=== PATIENT | female | born 1955 | race Caucasian/White ===

== ENCOUNTER → 2018-11-18 | Outpatient (CLI) | payer MEDICARE, OTHER ==
[~2018-11-18] MED LIST: CATHETER FLUSH 10 ML SYR IV PRN
--- NOTE | 2018-11-18 19:31 | STRESS TEST ---
DATE OF SERVICE: 11/18/2018 LEXISCAN MYOVIEW STRESS TEST REPORT REFERRING PHYSICIAN: . Baseline heart rate is 60. Baseline blood pressure 137/67. Baseline EKG is sinus rhythm with no ischemic changes. In summary, the patient was injected with 10.20 mCi of technetium-99 Myoview and the resting images were obtained. Then, the patient received 0.4 mg of Lexiscan followed by 31.9 mCi of technetium-99 Myoview. Throughout the test, there were no EKG changes. The resting and stress images were reviewed and compared in the short axis, horizontal long axis, and vertical long axis views. Review of the images showed good radiotracer uptake with no significant ischemia or infarction. SSS is 3, SDS 3, TID value 0.86. On the gated images, the left ventricle appeared to be normal size with normal contractility. Calculated ejection fraction 70%. CONCLUSION: 1. The patient tolerated Lexiscan well. 2. No significant ischemia or infarction on SPECT images. 3. Normal left ventricular size with normal contractility. Calculated ejection fraction 70%. Job ID: [id number] DocumentID: [id number] Dictated Date: 11/18/2018 16:08:17 [employer] Supervisor Date: 11/18/2018 19:31:17 Dictated By: PRATIK WALLER MD
== END ==
LOC: CARD 11:52
PROVIDERS: ATTEND Internal Medicine Cardiovascular Disease
DX: I10 Essential (primary) hypertension (principal); I07.1 Rheumatic tricuspid insufficiency
CPT/HCPCS: 78452; 93017; 93306

== ENCOUNTER → 2019-03-23 | Outpatient (CLI) | payer MEDICARE, OTHER ==
--- NOTE | 2019-03-23 15:41 | Diagnostic Imaging Report ---
INDICATION: Postmenopausal state, screening for osteoporosis. COMPARISON: None available, baseline exam. FINDINGS: AP Spine L1-L4: [BMD (g/cm2): 0.982] [T-Score: -1.8] [Z-Score: -0.3] [BMD Previous: na] [BMD % Change: na] LT Hip Neck: [BMD (g/cm2): 0.757] [T-Score: -2.0] [Z-Score: -0.6] LT Hip Total: [BMD (g/cm2):0.847] [T-Score:-1.3] [Z-Score: -0.1] [BMD Previous: na] [BMD % Change: na] RT Hip Neck: [BMD (g/cm2):0.803] [T-Score:-1.7] [Z-Score:-0.2] RT Hip Total: [BMD (g/cm2):0.824] [T-score:-1.5] [Z-Score:-0.3] [BMD Previous:na] [BMD % Change:na] *Indicates significant change from prior examination based on 95% confidence level. World Health Organization criteria for BMD interpretation classify patients as Normal (T-score at or above -1.0), Osteopenic (T-score between -1.0 and -2.5) or Osteoporotic (T-score at or below -2.5). LIMITATIONS AND MODIFICATION: None. FRACTURE RISK (FRAX SCORE): The ten year probability of (%): Major Osteoporotic Fracture: [18.2] Hip Fracture: [3.0] IMPRESSION: 1. Osteopenia (Low bone mass). 2. Baseline examination. 3. See below National Osteoporosis Foundation guidelines on when to potentially initiate pharmacologic therapy. Based on the National Osteoporosis Foundation Guidelines, pharmacologic treatment should be initiated in any of the following, unless clinical conditions suggest otherwise: * Any patient with prior fragility fracture of the hip or vertebrae. A spine fracture indicates 5X risk for subsequent spine fracture and 2X risk for subsequent hip fracture. * Osteoporosis (T-score <-2.5). * Postmenopausal women and men age 50 and older with low bone mass/osteopenia (T-score between -1.0 and -2.5) by DXA and 10-year major osteoporotic fracture greater than 20% or a 10-year probability of hip fracture greater than 3%. These fracture risks are supplied above in the FRAX score, if applicable. * Clinician judgement and/or patient preferences may indicate treatment for people with 10-year fracture probabilities above or below these levels. Dictated by: Dictated on workstation # [id number]
== END ==
LOC: RAD 14:09
PROVIDERS: ATTEND Family Medicine
DX: Z13.820 Encounter for screening for osteoporosis (principal); Z78.0 Asymptomatic menopausal state; M85.89 Other specified disorders of bone density and structure, multiple sites
CPT/HCPCS: 77080

== ENCOUNTER → 2019-05-11 | Outpatient (CLI) | payer MEDICARE, OTHER ==
--- NOTE | 2019-05-11 17:08 | Diagnostic Imaging Report ---
INDICATION: Leg pain. Three views were obtained. FINDINGS: The alignment of the lumbar spine is normal. Vertebral body heights are well maintained. There is no spondylolysis or spondylolisthesis. No fractures are identified. There is focal degenerative disc disease at L4-L5 and L5-S1. IMPRESSION: Lower lumbar spondylosis and degenerative disc disease as described. Dictated by: Dictated on workstation # [id number]
== END ==
LOC: RAD FS 16:33
PROVIDERS: ATTEND Family Medicine
DX: M47.816 Spondylosis without myelopathy or radiculopathy, lumbar region (principal); M51.17 Intervertebral disc disorders with radiculopathy, lumbosacral region
CPT/HCPCS: 72100

== ENCOUNTER 2020-04-11 11:27 | Emergency (ER) | payer MEDICARE ==
[~2020-04-11] VITALS: Ht 162.6 cm; Wt 66.8 kg
--- NOTE | 2020-04-11 12:04 | ED GI ---
General Chief Complaint: Abdominal/GI Problems Stated Complaint: NEAR SYNCOPE; NAUSEA Source of Information: Patient History of Present Illness Date Seen by Provider: Apr 11, 2020 Time Seen by Provider: 12:00 Initial Comments 65-year-old female presents with 3 week history of dizziness, abdominal discomfort, lightheadedness when standing. Patient with history of diverticulitis which was recently treated by her PCP with Levaquin, also recent UTI treated in urgent care with nitrofurantoin. Patient concerned that she think she has diverticulitis. Denies any blood in her stool or diarrhea or constipation. Denies any weight loss. Denies any recent illness, fever or chills. Denies nausea or vomiting. Allergies and Home Medications Allergies Coded Allergies: No Known Drug Allergies (Unverified , 04/11/20) Home Medications Ondansetron 4 Mg Tab.rapdis, 4 MG PO TID Prescribed by: JEAN SWAN on 04/11/20 1343 Patient Home Medication List Home Medication List Reviewed: Yes Review of Systems Review of Systems Constitutional: No chills, No diaphoresis; dizziness; No fever; malaise, weakness EENTM: No Symptoms Reported Respiratory: Denies Cough, Denies Shortness of Air, Denies Stridor, Denies Wheezing Cardiovascular: Denies Chest Pain, Denies Edema; Lightheadedness; Denies Palpitations, Denies Syncope Gastrointestinal: See HPI, Abdominal Pain; Denies Constipated, Denies Diarrhea, Denies Difficulty Swallowing, Denies Nausea, Denies Poor Appetite, Denies Vomiting Genitourinary: Denies Burning, Denies Discharge, Denies Frequency, Denies Flank Pain Musculoskeletal: No back pain, No joint pain Skin: No change in color, No rash Psychiatric/Neurological: Denies Headache, Denies Numbness, Denies Paresthesia, Denies Seizure, Denies Tingling; Weakness Past Zwtjtdr-Wdgaia-Ddejae Hx Past Med/Social Hx: Reviewed Nursing Past Med/Soc Hx Physical Exam Vital Signs Vital Signs - First Documented 04/11/20 11:58 Temp 36.9 Pulse 63 Resp 18 B/P (MAP) 145/92 (109) Pulse Ox 96 O2 Delivery Room Air Capillary Refill : Height/Weight/BMI Height: '" Weight: lbs. oz. kg; BMI Method: General Appearance: WD/WN, no apparent distress HEENT: PERRL/EOMI, normal ENT inspection Neck: non-tender, supple Respiratory: chest non-tender, lungs clear, normal breath sounds, no respiratory distress, no accessory muscle use Cardiovascular: regular rate, rhythm, no edema, no gallop, no JVD, no murmur Gastrointestinal: normal bowel sounds, soft, no organomegaly, no pulsatile mass, tenderness (non-localized, mild and generalized tenderness. no peritoneal sx) Extremities: normal range of motion, non-tender, normal inspection, no pedal edema, no calf tenderness Back: normal inspection, no CVA tenderness, no vertebral tenderness Neurologic/Psychiatric: alert, normal mood/affect Skin: normal color, warm/dry Progress/Results/Core Measures Results/Orders Lab Results Laboratory Tests Test 04/11/20 12:23 04/11/20 12:40 Range/Units Urine Color YELLOW Urine Clarity CLEAR Urine pH 5.5 5-9 Urine Specific [place] >=1.030 1.016-1.022 Urine Protein NEGATIVE NEGATIVE Urine Glucose (UA) NEGATIVE NEGATIVE Urine Ketones NEGATIVE NEGATIVE Urine Nitrite NEGATIVE NEGATIVE Urine Bilirubin NEGATIVE NEGATIVE Urine Urobilinogen 0.2 < = 1.0 MG/DL Urine Leukocyte Esterase NEGATIVE NEGATIVE Urine RBC (Auto) NEGATIVE NEGATIVE Urine RBC NONE /HPF Urine WBC 0-2 /HPF Urine Squamous Epithelial Cells 0-2 /HPF Urine Crystals NONE /LPF Urine Bacteria NEGATIVE /HPF Urine Casts NONE /LPF Urine Mucus SMALL H /LPF Urine Culture Indicated NO White Blood Count 10.1 4.3-11.0 10^3/uL Red Blood Count 4.74 4.35-5.85 10^6/uL Hemoglobin 13.7 11.5-16.0 G/DL Hematocrit 42 35-52 % Mean Corpuscular Volume 89 80-99 FL Mean Corpuscular Hemoglobin 29 25-34 PG Mean Corpuscular Hemoglobin Concent 33 32-36 G/DL Red Cell Distribution Width 12.5 10.0-14.5 % Platelet Count 254 130-400 10^3/uL Mean Platelet Volume 10.7 H 7.4-10.4 FL Immature Granulocyte % (Auto) 0 % Neutrophils (%) (Auto) 68 42-75 % Lymphocytes (%) (Auto) 23 12-44 % Monocytes (%) (Auto) 7 0-12 % Eosinophils (%) (Auto) 1 0-10 % Basophils (%) (Auto) 0 0-10 % Neutrophils # (Auto) 6.8 1.8-7.8 X 10^3 Lymphocytes # (Auto) 2.4 1.0-4.0 X 10^3 Monocytes # (Auto) 0.7 0.0-1.0 X 10^3 Eosinophils # (Auto) 0.1 0.0-0.3 10^3/uL Basophils # (Auto) 0.0 0.0-0.1 10^3/uL Immature Granulocyte # (Auto) 0.0 0.0-0.1 10^3/uL Sodium Level 139 135-145 MMOL/L Potassium Level 4.1 3.6-5.0 MMOL/L Chloride Level 101 98-107 MMOL/L Carbon Dioxide Level 27 21-32 MMOL/L Anion Gap 11 5-14 MMOL/L Blood Urea Nitrogen 18 7-18 MG/DL Creatinine 0.92 0.60-1.30 MG/DL Estimat Glomerular Filtration Rate > 60 BUN/Creatinine Ratio 20 Glucose Level 96 70-105 MG/DL Calcium Level 9.2 8.5-10.1 MG/DL Corrected Calcium 8.9 8.5-10.1 MG/DL Total Bilirubin 0.3 0.1-1.0 MG/DL Aspartate Amino Transf (AST/SGOT) 23 5-34 U/L Alanine Aminotransferase (ALT/SGPT) 20 0-55 U/L Alkaline Phosphatase 85 40-136 U/L Total Protein 7.1 6.4-8.2 GM/DL Albumin 4.4 3.2-4.5 GM/DL Lipase 36 8-78 U/L My Orders Orders - JEAN SWAN DO Ed Iv/Invasive Line Start (04/11/20 12:04) Cbc With Automated Diff (04/11/20 12:04) Comprehensive Metabolic Panel (04/11/20 12:04) Lipase (04/11/20 12:04) Urinalysis (04/11/20 12:04) Acute Abd Series (04/11/20 12:04) Vital Signs/I&O 04/11/20 04/11/20 11:58 13:54 Temp 36.9 36.9 Pulse 63 60 Resp 18 18 B/P (MAP) 145/92 (109) 140/90 (109) Pulse Ox 96 95 O2 Delivery Room Air Progress Progress Note : Progress Note Discussed with patient her evaluation including normal labs, and x-rays showing moderate amount of stool in the colon. Discussed her diet, encouraged improved hydration and advised [id number] laxatives to try to clear her bowels over the next few days. Also encouraged patient to follow up with her primary care provider in the next week for further evaluation if deemed necessary, but at this time she seemed to be doing rather well. Diagnostic Imaging Diagonstic Imaging: Xray Plain Films/CT/US/NM/MRI: chest, abdomen Comments FINDINGS: The lungs are clear. There is a benign calcified granuloma projecting over the left lower lobe. No failure, effusion, or pneumothorax. The colonic fecal load is perhaps mildly elevated and a mild degree of constipation could not be excluded; however, there is no obstruction or findings of fecal impaction. There are clips at the gallbladder fossa. There are pelvic phleboliths and degenerative changes to the lower lumbar spine. IMPRESSION: Borderline elevation of the colonic fecal load but no acute finding is identified at this study. Dictated on workstation # [id number] Dict: 04/11/20 1233 Trans: 04/11/20 1235 [id number] Interpreted by: MILLY FIELDS Electronically signed by: Departure Impression Primary Impression: Abdominal pain Qualified Codes: R10.84 - Generalized abdominal pain Disposition: HOME, SELF-CARE Condition: Stable Departure-Patient Inst. Decision time for Depature: 13:42 Referrals: PETE BOND MD (PCP/Family) Primary Care Physician Add. Discharge Instructions: Call Dr Bond to arrange for a follow up appointment in 1 week. All discharge instructions reviewed with patient and/or family. Voiced understanding. Scripts Ondansetron (Ondansetron Odt) 4 Mg Tab.rapdis 4 MG PO TID for Nausea, #10 TAB Prov: JEAN SWAN DO 04/11/20 JEAN SWAN DO Apr 11, 2020 12:04
--- NOTE | 2020-04-11 12:35 | Diagnostic Imaging Report ---
INDICATION: Abdominal pain. FINDINGS: The lungs are clear. There is a benign calcified granuloma projecting over the left lower lobe. No failure, effusion, or pneumothorax. The colonic fecal load is perhaps mildly elevated and a mild degree of constipation could not be excluded; however, there is no obstruction or findings of fecal impaction. There are clips at the gallbladder fossa. There are pelvic phleboliths and degenerative changes to the lower lumbar spine. IMPRESSION: Borderline elevation of the colonic fecal load but no acute finding is identified at this study. Dictated by: Dictated on workstation # [id number]
[2020-04-11 12:47] LABS: BACTERIA,URINE NEGATIVE /HPF; BILIRUBIN,URINE NEGATIVE (NEGATIVE); CLARITY,URINE CLEAR; COLOR,URINE YELLOW; GLUCOSE, URINE (UA) NEGATIVE (NEGATIVE); KETONES,URINE NEGATIVE (NEGATIVE); LEUKOCYTE ESTERASE ,URINE NEGATIVE (NEGATIVE); NITRITE,URINE NEGATIVE (NEGATIVE); PH,URINE 5.5 (5-9); PROTEIN,URINE NEGATIVE (NEGATIVE); SQUAMOUS EPITHELIAL CELL,UR 0-2 /HPF; WBC,URINE 0-2 /HPF
[2020-04-11 13:00] LABS: HEMATOCRIT 42 % (35-52); HEMOGLOBIN 13.7 G/DL (11.5-16.0); MEAN CORPUSCULAR HEMOGLOBIN 29 PG (25-34); MEAN CORPUSCULAR HGB CONC 33 G/DL (32-36); MEAN CORPUSCULAR VOLUME 89 FL (80-99); WHITE BLOOD COUNT 10.1 10^3/uL (4.3-11.0)
[2020-04-11 13:01] LABS: BASOPHILS % (AUTO) 0 % (0-10); EOSINOPHILS # (AUTO) 0.1 10^3/uL (0.0-0.3); EOSINOPHILS % (AUTO) 1 % (0-10); LYMPHOCYTES # (AUTO) 2.4 X 10^3 (1.0-4.0); LYMPHOCYTES % (AUTO) 23 % (12-44); MEAN PLATELET VOLUME 10.7 FL (7.4-10.4); MONOCYTES # (AUTO) 0.7 X 10^3 (0.0-1.0); MONOCYTES % (AUTO) 7 % (0-12); NEUTROPHILS # (AUTO) 6.8 X 10^3 (1.8-7.8); NEUTROPHILS % (AUTO) 68 % (42-75); PLATELET COUNT 254 10^3/uL (130-400)
[2020-04-11 13:22] LABS: CHLORIDE 101 MMOL/L (98-107); POTASSIUM 4.1 MMOL/L (3.6-5.0); SODIUM 139 MMOL/L (135-145)
[2020-04-11 13:23] LABS: ALANINE AMINOTRANSFERASE 20 U/L (0-55); ALBUMIN 4.4 GM/DL (3.2-4.5); ALKALINE PHOSPHATASE 85 U/L (40-136); BILIRUBIN,TOTAL 0.3 MG/DL (0.1-1.0); BUN/CREATININE RATIO 20; CALCIUM 9.2 MG/DL (8.5-10.1); CARBON DIOXIDE 27 MMOL/L (21-32); CREATININE SERUM 0.92 MG/DL (0.60-1.30); GFR ESTIMATED > 60; GLUCOSE 96 MG/DL (70-105); LIPASE 36 U/L (8-78); TOTAL PROTEIN 7.1 GM/DL (6.4-8.2)
[2020-04-11] MEDS ORDERED: ONDA4TAB11 PO (13:43)
[2020-04-11 13:54] VITALS: BP 140/90
== END 2020-04-11 13:56 | disposition home or self-care (01) ==
LOC: EDUNIT# 11:27 → ER FS 11:29
DX: R10.84 Generalized abdominal pain (principal)
CPT/HCPCS: 36415; 74022; 80053; 81000; 83690; 85025

== ENCOUNTER → 2020-05-24 | Outpatient (CLI) | payer MEDICARE ==
[~2020-05-24] MED LIST changes: +HOLD METFORMIN - RECEIVED CONTRAST 20 ML VIAL IV SCH; +IOHEXOL 350 MG/ML 100 ML (OMNIPAQUE 350) VIAL IV ONE; +NS 100 ML (IVPB) BAG IV ONE; +ONDA4TAB11 PO
[2020-05-24 09:38] LABS: CHLORIDE 104 MMOL/L (98-107); POTASSIUM 4.2 MMOL/L (3.6-5.0); SODIUM 142 MMOL/L (135-145)
[2020-05-24 09:39] LABS: BUN/CREATININE RATIO 16; CARBON DIOXIDE 28 MMOL/L (21-32); CREATININE SERUM 0.87 MG/DL (0.60-1.30); GFR ESTIMATED > 60
[2020-05-24 09:40] LABS: ALANINE AMINOTRANSFERASE 21 U/L (0-55); ALBUMIN 4.1 GM/DL (3.2-4.5); ALKALINE PHOSPHATASE 68 U/L (40-136); BILIRUBIN,TOTAL 0.4 MG/DL (0.1-1.0); CALCIUM 9.2 MG/DL (8.5-10.1); GLUCOSE 103 MG/DL (70-105); TOTAL PROTEIN 6.9 GM/DL (6.4-8.2)
--- NOTE | 2020-05-24 11:31 | Diagnostic Imaging Report ---
PROCEDURE: CT abdomen and pelvis with and without contrast. TECHNIQUE: Precontrast acquisitions were acquired through the abdomen and pelvis. Multiple contiguous axial images were obtained through the abdomen and pelvis after the administration of intravenous contrast. Auto Exposure Controls were utilized during the CT exam to meet ALARA standards for radiation dose reduction. INDICATION: Kidney pain. There are no prior CT examinations available for comparison. The acute abdomen series of 04/11/2020 failed to show any sign of an acute abnormality. On this exam the liver is homogeneous and not enlarged. The liver is of lower density than usually seen and this does suggest fatty metamorphosis. The spleen, pancreas, adrenals, kidneys, aorta and inferior vena cava and portal vein are unremarkable for an acute abnormality. There is a 4 cm benign-appearing cyst arising from the lateral aspect of the right kidney. The gallbladder is surgically absent. The stomach is not well distended and difficult to assess. There is no pelvic mass or free fluid collection evident. The uterus is surgically absent. There is diverticulosis of the sigmoid and descending colon but there is no sign of acute diverticulitis. There is a moderate amount of liquid fecal material throughout the ascending and transverse colon. The appendix is not well-visualized but there are no indirect signs of acute appendicitis. The lung bases are clear. The bone windows show no sign of a fracture or of a destructive lesion. There is fairly severe degenerative disc and bony disease at L4-L5 and L5-S1. IMPRESSION: 1. There is no acute abnormality of the abdomen or pelvis. 2. The liver is not enlarged but the low density appearance of the liver does suggest fatty metamorphosis. 3. There is diverticulosis of the sigmoid and descending colon without evidence for acute diverticulitis. 4. The uterus and gallbladder are surgically absent. Dictated by: Dictated on workstation # [id number]
== END ==
LOC: RAD FS 08:50
PROVIDERS: ATTEND Family Medicine
DX: N23 Unspecified renal colic (principal); K57.30 Diverticulosis of large intestine without perforation or abscess without bleeding; Z90.49 Acquired absence of other specified parts of digestive tract; Z90.6 Acquired absence of other parts of urinary tract
CPT/HCPCS: 36415; 74178; 80053

== ENCOUNTER 2020-12-03 20:07 | Emergency (ER) | payer MEDICARE ==
[~2020-12-03] VITALS: Ht 165.1 cm; Wt 61.4 kg
[~2020-12-03 20:07] MED LIST changes: -CATHETER FLUSH 10 ML SYR IV PRN; -HOLD METFORMIN - RECEIVED CONTRAST 20 ML VIAL IV SCH; -IOHEXOL 350 MG/ML 100 ML (OMNIPAQUE 350) VIAL IV ONE; -NS 100 ML (IVPB) BAG IV ONE
[2020-12-03 20:14] VITALS: BP 147/82
--- OUTSIDE RECORDS SUMMARY | 2020-12-03 20:14 | XMS REPORT | Clinical Summary ---
Author Author [facility] Organization [facility] Address Unknown Phone Unavailable Care Team Providers Care Director Reactor Projects Name Role Phone PCP Unavailable Allergies Not on File Medications Not on file Active Problems Not on file Social History Date Tobacco Use Types Packs/Day Years Used Never Assessed Sex Assigned at Date Recorded Not on file Last Filed Vital Signs Not on file Plan of Treatment Health Maintenance Due Date Last Done Comments Advance Directive has 1955 been filed Hepatitis C Screen 1955 Medicare Annual Wellness 1955 Td/Tdap# 1955 COVID-19 Vaccine (1) 1965 Colorectal Screening via 2003 Colonoscopy Mammogram Screening 2003 Zoster Vaccine# (1 of 2) 2003 Advance Directive 2018 Conversation Depression Screening 2018 PHQ-9 # Fall Risk Assessment # 2018 Osteoporosis Screening 2018 Patient Needs Advance 2018 Directive Pneumococcal Vaccine: 65+ 2018 02/23/2012 Years (1 of 1 - PPSV23) Influenza Vaccine (#1) 2020 01/07/2018 Results Not on filefrom Last 3 Months Insurance Type Payer Benefit Subscriber ID Effective Phone Address Plan / Dates Group Medicare MEDICARE MEDICARE [id number] 2018- [place] [address] [place], [place] Advance Directives For more information, please contact: [phone] 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
--- OUTSIDE RECORDS SUMMARY | 2020-12-03 20:14 | XMS REPORT | Clinical Summary ---
Author Author [facility] Organization [facility] Address Unknown Phone Unavailable Care Team Providers Care Black Pickler Name Role Phone Self, Referral PCP Unavailable Harshal Odell MD Unavailable Unavailable Source Comments Some departments are not documenting in the electronic medical record. If you d o not see the information that you expected, contact Release of Information in [facility] Information Management department at [phone] for further assistan ce in locating additional records.[facility] Allergies Comments Active Allergy Reactions Severity Noted Date Codeine SYNCOPE 07/04/2008 Medications End Date Status Medication Sig Dispensed Refills Start Date Active nortriptyline (PAMELOR) Take 10 mg by 0 10 mg capsule mouth. Each day Active rabeprazole DR, +, Take 20 mg by 0 (ACIPHEX) 20 mg tablet mouth Daily. Active METOCLOPRAMIDE HCL Take by 0 (METOCLOPRAMIDE PO) mouth. 10 mg three times a day Active Problems Problem Noted Date Irritable bowel syndrome 10/05/2007 Abdominal pain, unspecified site 10/05/2007 Surgical History Surgery Date Site/Laterality Comments HX CHOLECYSTECTOMY 2006 HX TUBAL LIGATION Medical History Medical History Date Comments GERD (gastroesophageal reflux disease) Colon polyps 2007 history of polyps Abdominal pain COPD (chronic obstructive pulmonary disease) (HCC) Rectal bleeding Family History Medical History Relation Name Comments Cancer Maternal colon Grandfather Relation Name Status Comments Maternal Grandfather Social History Date Tobacco Use Types Packs/Day Years Used Never Assessed Sex Assigned at Date Recorded Not on file Last Filed Vital Signs Reading Time Taken Comments Vital Sign 98/72 07/04/2008 12:23 PM CDT Blood Pressure 95 07/04/2008 12:23 PM CDT Pulse 36.3 C (97.3 F) 07/04/2008 10:28 AM CDT Temperature - - Respiratory Rate 93% 07/04/2008 12:23 PM CDT Oxygen Saturation - - Inhaled Oxygen Concentration 65.8 kg (145 lb) 07/04/2008 10:28 AM CDT Weight 165.1 cm (5' 5") 07/04/2008 10:28 AM CDT Height 24.13 07/04/2008 10:28 AM CDT Body Mass Index Plan of Treatment Health Maintenance Due Date Last Done Comments DTAP/TDAP VACCINES (1 - 1971 Tdap) HEPATITIS C SCREENING 1971 PHYSICAL (COMPREHENSIVE) 1971 EXAM BREAST CANCER SCREENING 1993 SHINGLES RECOMBINANT 2003 VACCINE (1 of 2) OSTEOPOROSIS 2018 SCREENING/MONITORING PNEUMONIA (PPSV23) 2018 VACCINE (1 of 1 - PPSV23) COLORECTAL CANCER 07/04/2018 07/04/2008 SCREENING INFLUENZA VACCINE 12/22/2020 Results Not on filefrom Last 3 Months
--- NOTE | 2020-12-03 20:20 | ED General ---
General Stated Complaint: LIGHT HEADED/NAUSEA History of Present Illness Date Seen by Provider: Dec 03, 2020 Time Seen by Provider: 20:14 Initial Comments 65-year-old female presents with some generalized malaise, and decreased appetite not feeling well. Patient reports that she was diagnosed on November 19 with Covid her symptoms started a few days before that. She presents today because she just thinks she might be dehydrated because she continues to feel terrible. Patient reports that she is fully vaccinated prior to getting Covid. Patient denies any shortness of breath. Patient comes because she just wants to feel better Allergies and Home Medications Allergies Coded Allergies: No Known Drug Allergies (Unverified , 04/11/20) Patient Home Medication List Home Medication List Reviewed: Yes Nitrofurantoin Macrocrystal (Nitrofurantoin) 100 Mg Capsule, 100 MG PO BID Prescribed by: ROBERT SALAS on 12/03/202050 Ondansetron (Ondansetron Odt) 4 Mg Tab.rapdis, 4 MG PO TID Prescribed by: JEAN SWAN on 04/11/20 1343 Review of Systems Review of Systems Constitutional: No chills; malaise Respiratory: cough Cardiovascular: No chest pain, No palpitations Gastrointestinal: No abdominal pain, No diarrhea; loss of appetite, nausea; No vomiting Musculoskeletal: no symptoms reported Skin: no symptoms reported Psychiatric/Neurological: No Symptoms Reported Hematologic/Lymphatic: No Symptoms Reported Past Mzeykvr-Ezzntc-Kjinxa Hx Seasonal Allergies Seasonal Allergies: No Past Medical History Surgeries: Yes (colon resection) Respiratory: Yes COPD Cardiac: No Neurological: No Genitourinary: No Gastrointestinal: Yes Diverticulosis Musculoskeletal: No Endocrine: No HEENT: No Cancer: No Psychosocial: No Integumentary: No Physical Exam Vital Signs Vital Signs - First Documented 12/03/20 20:14 Temp 36.9 Pulse 98 Resp 20 B/P (MAP) 147/82 (103) Pulse Ox 96 O2 Delivery Room Air Capillary Refill : Height, Weight, BMI Height: '" Weight: lbs. oz. 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 Norm as Tested Skin: Normal Color, Warm/Dry Progress/Results/Core Measures Suspected Sepsis SIRS Temperature: Pulse: Respiratory Rate: Laboratory Tests 12/03/20 20:22: White Blood Count 11.1H Blood Pressure / Mean: Laboratory Tests 12/03/20 20:22: Creatinine 0.87, Platelet Count 323, Total Bilirubin 0.3 Results/Orders Lab Results Laboratory Tests Test 12/03/20 20:22 12/03/20 20:29 Range/Units White Blood Count 11.1 H 4.3-11.0 10^3/uL Red Blood Count 5.04 3.80-5.11 10^6/uL Hemoglobin 14.1 11.5-16.0 g/dL Hematocrit 43 35-52 % Mean Corpuscular Volume 85 80-99 fL Mean Corpuscular Hemoglobin 28 25-34 pg Mean Corpuscular Hemoglobin Concent 33 32-36 g/dL Red Cell Distribution Width 12.2 10.0-14.5 % Platelet Count 323 130-400 10^3/uL Mean Platelet Volume 9.8 9.0-12.2 fL Immature Granulocyte % (Auto) 1 % Neutrophils (%) (Auto) 68 42-75 % Lymphocytes (%) (Auto) 21 12-44 % Monocytes (%) (Auto) 9 0-12 % Eosinophils (%) (Auto) 1 0-10 % Basophils (%) (Auto) 0 0-10 % Neutrophils # (Auto) 7.5 1.8-7.8 X 10^3 Lymphocytes # (Auto) 2.3 1.0-4.0 X 10^3 Monocytes # (Auto) 1.0 0.0-1.0 X 10^3 Eosinophils # (Auto) 0.2 0.0-0.3 10^3/uL Basophils # (Auto) 0.0 0.0-0.1 10^3/uL Immature Granulocyte # (Auto) 0.1 0.0-0.1 10^3/uL Sodium Level 139 135-145 MMOL/L Potassium Level 3.5 L 3.6-5.0 MMOL/L Chloride Level 103 98-107 MMOL/L Carbon Dioxide Level 27 21-32 MMOL/L Anion Gap 9 5-14 MMOL/L Blood Urea Nitrogen 14 7-18 MG/DL Creatinine 0.87 0.60-1.30 MG/DL Estimat Glomerular Filtration Rate 65 BUN/Creatinine Ratio 16 Glucose Level 113 H 70-105 MG/DL Calcium Level 8.9 8.5-10.1 MG/DL Corrected Calcium 9.1 8.5-10.1 MG/DL Total Bilirubin 0.3 0.1-1.0 MG/DL Aspartate Amino Transf (AST/SGOT) 20 5-34 U/L Alanine Aminotransferase (ALT/SGPT) 16 0-55 U/L Alkaline Phosphatase 85 40-136 U/L Total Protein 7.2 6.4-8.2 GM/DL Albumin 3.7 3.2-4.5 GM/DL Urine Color YELLOW Urine Clarity SLIGHTLY CLOUDY Urine pH 6.0 5-9 Urine Specific [place] 1.020 1.016-1.022 Urine Protein NEGATIVE NEGATIVE Urine Glucose (UA) NEGATIVE NEGATIVE Urine Ketones TRACE H NEGATIVE Urine Nitrite POSITIVE H NEGATIVE Urine Bilirubin NEGATIVE NEGATIVE Urine Urobilinogen 0.2 < = 1.0 MG/DL Urine Leukocyte Esterase 1+ H NEGATIVE Urine RBC (Auto) TRACE-I NEGATIVE Urine RBC NONE /HPF Urine WBC 50-100 H /HPF Urine Squamous Epithelial Cells 5-10 /HPF Urine Crystals NONE /LPF Urine Bacteria LARGE H /HPF Urine Casts NONE /LPF Urine Mucus NEGATIVE /LPF Urine Culture Indicated YES My Orders Orders - ROBERT SALAS DO Cbc With Automated Diff (12/03/20 20:21) Comprehensive Metabolic Panel (12/03/20 20:21) Ua Culture If Indicated (12/03/20 20:21) Ondansetron Injection (Zofran Injectio (12/03/20 20:30) Ns Iv 1000 Ml (Sodium Chloride 0.9%) (12/03/20 20:21) Urine Culture (12/03/20 20:29) Ed Iv/Invasive Line Start (12/03/20 20:44) Nitrofurantoin Capsule,Macro (Macrobid C (12/03/20 21:00) Medications Given in ED Current Medications Medications Dose Ordered Sig/Nori Route Start Time Stop Time Status Last Admin Dose Admin Nitrofurantoin Macrocrystals 100 mg ONCE ONCE PO 12/03/20 21:00 12/03/20 21:01 DC 12/03/20 20:53 100 MG Ondansetron HCl 4 mg ONCE ONCE IVP 12/03/20 20:30 12/03/20 20:31 DC 12/03/20 20:33 4 MG Vital Signs/I&O 12/03/20 20:14 Temp 36.9 Pulse 98 Resp 20 B/P (MAP) 147/82 (103) Pulse Ox 96 O2 Delivery Room Air Capillary Refill : Progress Note : Progress Note Patient with a urinary tract infection, otherwise her labs show no significant acute findings. Gave her a liter of IV fluids along with Macrobid here in the ER. Patient discharged with a prescription for Macrobid and should follow with her primary care provider in a few days. Departure Impression Primary Impression: Acute cystitis Qualified Codes: N30.00 - Acute cystitis without hematuria Additional Impression: Post-acute COVID-19 syndrome Disposition: HOME, SELF-CARE Condition: Stable Departure-Patient Inst. Referrals: SELF,PETE BLUE (PCP/Family) Primary Care Physician Patient Instructions: Recovery After COVID-19, Urinary Tract Infections in Adults Add. Discharge Instructions: Drink plenty of fluids Follow-up with your primary care provider in 3 to 4 days for recheck of your symptoms Scripts Nitrofurantoin Macrocrystal (Nitrofurantoin) 100 Mg Capsule 100 MG PO BID, #14 CAP 0 Refills Prov: ROBERT SALAS DO 12/03/20 ROBERT SALAS DO Dec 03, 2020 20:20
[2020-12-03] MEDS ORDERED: NS IV 1000 ML 1,000 ML IV STA (20:21)
[2020-12-03 20:25] LABS: BASOPHILS % (AUTO) 0 % (0-10); EOSINOPHILS # (AUTO) 0.2 10^3/uL (0.0-0.3); EOSINOPHILS % (AUTO) 1 % (0-10); HEMATOCRIT 43 % (35-52); HEMOGLOBIN 14.1 g/dL (11.5-16.0); LYMPHOCYTES # (AUTO) 2.3 X 10^3 (1.0-4.0); LYMPHOCYTES % (AUTO) 21 % (12-44); MEAN CORPUSCULAR HEMOGLOBIN 28 pg (25-34); MEAN CORPUSCULAR HGB CONC 33 g/dL (32-36); MEAN CORPUSCULAR VOLUME 85 fL (80-99); MEAN PLATELET VOLUME 9.8 fL (9.0-12.2); MONOCYTES % (AUTO) 9 % (0-12); NEUTROPHILS # (AUTO) 7.5 X 10^3 (1.8-7.8); NEUTROPHILS % (AUTO) 68 % (42-75); PLATELET COUNT 323 10^3/uL (130-400); WHITE BLOOD COUNT 11.1 10^3/uL (4.3-11.0)
[2020-12-03] MEDS ORDERED: ONDANSETRON 4 MG/2 ML (SDV) Z0FRAN IVP ONE (20:30)
[2020-12-03 20:36] LABS: CLARITY,URINE SLIGHTLY CLOUDY; COLOR,URINE YELLOW; GLUCOSE, URINE (UA) NEGATIVE (NEGATIVE); PROTEIN,URINE NEGATIVE (NEGATIVE)
[2020-12-03 20:37] LABS: BACTERIA,URINE LARGE /HPF; BILIRUBIN,URINE NEGATIVE (NEGATIVE); KETONES,URINE TRACE (NEGATIVE); LEUKOCYTE ESTERASE ,URINE 1+ (NEGATIVE); NITRITE,URINE POSITIVE (NEGATIVE); WBC,URINE 50-100 /HPF
[2020-12-03 20:43] LABS: ALBUMIN 3.7 GM/DL (3.2-4.5); BILIRUBIN,TOTAL 0.3 MG/DL (0.1-1.0); CALCIUM 8.9 MG/DL (8.5-10.1); CREATININE SERUM 0.87 MG/DL (0.60-1.30); POTASSIUM 3.5 MMOL/L (3.6-5.0); TOTAL PROTEIN 7.2 GM/DL (6.4-8.2)
[2020-12-03] MEDS ORDERED: NITR100C PO (20:51)
[2020-12-03] MEDS ORDERED: NITROFURANTOIN 100 MG (MACROBID) CAPSULE PO ONE (21:00)
== END 2020-12-03 21:06 | disposition home or self-care (01) ==
LOC: EDUNIT# 20:07 → ER FS 20:10
DX: N30.90 Cystitis, unspecified without hematuria (principal); J44.9 Chronic obstructive pulmonary disease, unspecified; Z86.16 Personal history of COVID-19
CPT/HCPCS: 36415; 80053; 81000; 85025; 87077; 87088; 87186

== ENCOUNTER → 2021-05-18 | Outpatient (CLI) | payer MEDICARE ==
[~2021-05-18] MED LIST changes: +NITR100C PO
--- NOTE | 2021-05-18 11:23 | Diagnostic Imaging Report ---
Indication: Chest pain PA and lateral chest Heart size and pulmonary vascularity are normal. Lungs are clear. There are no effusions or pneumothoraces. IMPRESSION: Negative chest Dictated by: Dictated on workstation # [id number]
== END ==
LOC: RAD FS 10:48
PROVIDERS: ATTEND Family Medicine
DX: J44.9 Chronic obstructive pulmonary disease, unspecified (principal)
CPT/HCPCS: 71046

== ENCOUNTER → 2021-07-03 | Outpatient (CLI) | payer MEDICARE ==
[~2021-07-03] MED LIST changes: +RT-ALBUTEROL SULF 2.5 MG/3 ML PRE-MIX VIAL INH ONE
== END ==
LOC: RT 09:15
PROVIDERS: ATTEND Nurse Practitioner Family
DX: J44.9 Chronic obstructive pulmonary disease, unspecified (principal)
CPT/HCPCS: 94060; 94726; 94729

== ENCOUNTER 2021-07-10 17:26 | Emergency (ER) | payer MEDICARE ==
[~2021-07-10] VITALS: Ht 165 cm; Wt 63.0 kg
[~2021-07-10 17:26] MED LIST changes: -RT-ALBUTEROL SULF 2.5 MG/3 ML PRE-MIX VIAL INH ONE
[2021-07-10 17:35] VITALS: BP 182/104
[2021-07-10 17:58] LABS: BILIRUBIN,URINE NEGATIVE (NEGATIVE); CLARITY,URINE CLEAR; COLOR,URINE YELLOW; GLUCOSE, URINE (UA) NEGATIVE (NEGATIVE); KETONES,URINE NEGATIVE (NEGATIVE); LEUKOCYTE ESTERASE ,URINE 1+ (NEGATIVE); NITRITE,URINE NEGATIVE (NEGATIVE); PH,URINE 5.5 (5-9); PROTEIN,URINE NEGATIVE (NEGATIVE)
[2021-07-10 18:13] LABS: BACTERIA,URINE MODERATE /HPF
[2021-07-10 18:14] LABS: HYALINE CASTS, URINE RARE /LPF
[2021-07-10] MEDS ORDERED: NS IV 1000 ML 1,000 ML IV SCH (18:15)
[2021-07-10] MEDS ORDERED: KETOROLAC 30 MG/ML VIAL IVP ONE (18:15)
--- NOTE | 2021-07-10 18:20 | ED GI ---
General Chief Complaint: Abdominal/GI Problems Stated Complaint: PAIN IN KIDNEY AND SIDE Nursing Triage Note: ARRIVED VIA AMB WITH COMPLAINTS OF LEFT FLANK PAIN FOR A WHILE. STATES SHE JUST HAS NOT FELT GOOD SINCE HAVING COVID. Source of Information: Patient Exam Limitations: No Limitations History of Present Illness Date Seen by Provider: Jul 10, 2021 Time Seen by Provider: 18:17 Initial Comments With left flank pain since last night. This radiates down to the left lower abdomen. No nausea no vomiting no fever no chills. No history of this. She states that since having COVID back in October she is noticed a significant decline in her health. Timing/Duration: 1-2 Days Severity/Quality: Moderate Location: Flank Radiation: No Radiation Activities at Onset: None Associated Symptoms: Nausea/Vomiting Allergies and Home Medications Allergies Coded Allergies: No Known Drug Allergies (Unverified , 04/11/20) Patient Home Medication List Home Medication List Reviewed: Yes Nitrofurantoin Macrocrystal (Nitrofurantoin) 100 Mg Capsule, 100 MG PO BID Prescribed by: ROBERT SALAS on 12/03/202050 Ondansetron (Ondansetron Odt) 4 Mg Tab.rapdis, 4 MG PO TID Prescribed by: JEAN SWAN on 04/11/20 1343 Review of Systems Review of Systems Constitutional: see HPI EENTM: No Symptoms Reported Respiratory: No Symptoms Reported Cardiovascular: No Symptoms Reported Gastrointestinal: See HPI, Abdominal Pain Genitourinary: See HPI Musculoskeletal: no symptoms reported Skin: no symptoms reported Psychiatric/Neurological: No Symptoms Reported Endocrine: No Symptoms Reported Hematologic/Lymphatic: No Symptoms Reported Past Pcdqcho-Jjucng-Touhab Hx Seasonal Allergies Seasonal Allergies: No Past Medical History Surgeries: Yes (colon resection) Respiratory: Yes COPD Cardiac: No Neurological: No Genitourinary: No Gastrointestinal: Yes Diverticulosis Musculoskeletal: No Endocrine: No HEENT: No Cancer: No Psychosocial: No Integumentary: No Physical Exam Vital Signs Vital Signs - First Documented 07/10/21 17:35 Temp 36.3 Pulse 72 Resp 16 B/P (MAP) 182/104 (130) Pulse Ox 95 O2 Delivery Room Air Capillary Refill : Less Than 3 Seconds Height/Weight/BMI Height: '" Weight: lbs. oz. kg; 23.00 BMI Method: General Appearance: WD/WN, no apparent distress, thin Neck: non-tender, full range of motion Respiratory: no respiratory distress, no accessory muscle use Cardiovascular: regular rate, rhythm, no murmur Gastrointestinal: normal bowel sounds, soft; No tenderness Extremities: normal range of motion, non-tender Back: CVA tenderness (L) Neurologic/Psychiatric: alert, normal mood/affect, oriented x 3 Progress/Results/Core Measures Results/Orders Lab Results Laboratory Tests Test 07/10/21 17:48 07/10/21 18:31 Range/Units Urine Color YELLOW Urine Clarity CLEAR Urine pH 5.5 5-9 Urine Specific [place] >=1.030 1.016-1.022 Urine Protein NEGATIVE NEGATIVE Urine Glucose (UA) NEGATIVE NEGATIVE Urine Ketones NEGATIVE NEGATIVE Urine Nitrite NEGATIVE NEGATIVE Urine Bilirubin NEGATIVE NEGATIVE Urine Urobilinogen 0.2 < = 1.0 MG/DL Urine Leukocyte Esterase 1+ H NEGATIVE Urine RBC (Auto) 1+ H NEGATIVE Urine RBC 2-5 H /HPF Urine WBC 2-5 /HPF Urine Squamous Epithelial Cells 2-5 /HPF Urine Crystals NONE /LPF Urine Bacteria MODERATE H /HPF Urine Casts PRESENT /LPF Urine Hyaline Casts RARE /LPF Urine Mucus MODERATE H /LPF Urine Culture Indicated YES White Blood Count 8.1 4.3-11.0 10^3/uL Red Blood Count 4.61 3.80-5.11 10^6/uL Hemoglobin 13.1 11.5-16.0 g/dL Hematocrit 40 35-52 % Mean Corpuscular Volume 87 80-99 fL Mean Corpuscular Hemoglobin 28 25-34 pg Mean Corpuscular Hemoglobin Concent 33 32-36 g/dL Red Cell Distribution Width 12.7 10.0-14.5 % Platelet Count 212 130-400 10^3/uL Mean Platelet Volume 10.2 9.0-12.2 fL Immature Granulocyte % (Auto) 0 % Neutrophils (%) (Auto) 54 42-75 % Lymphocytes (%) (Auto) 35 12-44 % Monocytes (%) (Auto) 9 0-12 % Eosinophils (%) (Auto) 1 0-10 % Basophils (%) (Auto) 0 0-10 % Neutrophils # (Auto) 4.4 1.8-7.8 10^3/uL Lymphocytes # (Auto) 2.8 1.0-4.0 10^3/uL Monocytes # (Auto) 0.7 0.0-1.0 10^3/uL Eosinophils # (Auto) 0.1 0.0-0.3 10^3/uL Basophils # (Auto) 0.0 0.0-0.1 10^3/uL Immature Granulocyte # (Auto) 0.0 0.0-0.1 10^3/uL Sodium Level 140 135-145 MMOL/L Potassium Level 3.5 L 3.6-5.0 MMOL/L Chloride Level 104 98-107 MMOL/L Carbon Dioxide Level 24 21-32 MMOL/L Anion Gap 12 5-14 MMOL/L Blood Urea Nitrogen 11 7-18 MG/DL Creatinine 0.96 0.60-1.30 MG/DL Estimat Glomerular Filtration Rate 64 BUN/Creatinine Ratio 11 Glucose Level 106 H 70-105 MG/DL Calcium Level 8.9 8.5-10.1 MG/DL Corrected Calcium 9.1 8.5-10.1 MG/DL Total Bilirubin 0.3 0.1-1.0 MG/DL Aspartate Amino Transf (AST/SGOT) 16 5-34 U/L Alanine Aminotransferase (ALT/SGPT) 17 0-55 U/L Alkaline Phosphatase 73 40-136 U/L Total Protein 6.4 6.4-8.2 GM/DL Albumin 3.8 3.2-4.5 GM/DL My Orders Orders - MEGAN MARTIN APRN Cbc With Automated Diff (07/10/21 18:01) Comprehensive Metabolic Panel (07/10/21 18:01) Ct Abd/Pelvis Wo(Kidney Stone) (07/10/21 18:01) Ed Iv/Invasive Line Start (07/10/21 18:01) Ns Iv 1000 Ml (Sodium Chloride 0.9%) (07/10/21 18:15) Ketorolac Injection (Toradol Injection) (07/10/21 18:15) Fentanyl Inj (Sublimaze Injection) (07/10/21 19:15) Medications Given in ED Current Medications Medications Dose Ordered Sig/Nori Route Start Time Stop Time Status Last Admin Dose Admin Ketorolac Tromethamine 15 mg ONCE ONCE IVP 07/10/21 18:15 07/10/21 18:16 DC 07/10/21 18:25 15 MG Vital Signs/I&O 07/10/21 17:35 Temp 36.3 Pulse 72 Resp 16 B/P (MAP) 182/104 (130) Pulse Ox 95 O2 Delivery Room Air Blood Pressure Mean: 130 Departure Impression Primary Impression: Left flank pain Disposition: 01 HOME, SELF-CARE Condition: Stable Departure-Patient Inst. Decision time for Depature: 19:02 Referrals: SELF,PETE BLUE (PCP/Family) Primary Care Physician Patient Instructions: Flank Pain (DC) Add. Discharge Instructions: 1. Return to ER for any concerns. Follow-up with your doctor next week. All discharge instructions reviewed with patient and/or family. Voiced understanding. MEGAN MARTIN PSYCHOLOGY ASSISTANT Jul 10, 2021 18:20
[2021-07-10 18:37] LABS: BASOPHILS % (AUTO) 0 % (0-10); EOSINOPHILS # (AUTO) 0.1 10^3/uL (0.0-0.3); EOSINOPHILS % (AUTO) 1 % (0-10); HEMATOCRIT 40 % (35-52); HEMOGLOBIN 13.1 g/dL (11.5-16.0); LYMPHOCYTES # (AUTO) 2.8 10^3/uL (1.0-4.0); LYMPHOCYTES % (AUTO) 35 % (12-44); MEAN CORPUSCULAR HEMOGLOBIN 28 pg (25-34); MEAN CORPUSCULAR HGB CONC 33 g/dL (32-36); MEAN CORPUSCULAR VOLUME 87 fL (80-99); MEAN PLATELET VOLUME 10.2 fL (9.0-12.2); MONOCYTES # (AUTO) 0.7 10^3/uL (0.0-1.0); MONOCYTES % (AUTO) 9 % (0-12); NEUTROPHILS # (AUTO) 4.4 10^3/uL (1.8-7.8); NEUTROPHILS % (AUTO) 54 % (42-75); PLATELET COUNT 212 10^3/uL (130-400); WHITE BLOOD COUNT 8.1 10^3/uL (4.3-11.0)
[2021-07-10 18:43] LABS: ALBUMIN 3.8 GM/DL (3.2-4.5); POTASSIUM 3.5 MMOL/L (3.6-5.0)
[2021-07-10 18:44] LABS: CALCIUM 8.9 MG/DL (8.5-10.1)
[2021-07-10 18:46] LABS: TOTAL PROTEIN 6.4 GM/DL (6.4-8.2)
[2021-07-10 18:47] LABS: BILIRUBIN,TOTAL 0.3 MG/DL (0.1-1.0)
[2021-07-10 18:49] LABS: CREATININE SERUM 0.96 MG/DL (0.60-1.30)
--- NOTE | 2021-07-10 19:01 | Diagnostic Imaging Report ---
PROCEDURE: CT urinary tract, rule out kidney stone. TECHNIQUE: Multiple contiguous axial images were obtained through the abdomen and pelvis without the use of intravenous contrast. Auto Exposure Controls were utilized during the CT exam to meet ALARA standards for radiation dose reduction. INDICATION: Flank pain Comparison is made with prior exam of 05/24/2020. FINDINGS: The heart size is normal. There is a calcified granuloma in the left lower lobe. The liver is normal in size without focal lesions. Gallbladder surgically absent. There is no biliary duct dilatation. The spleen is normal. Pancreas and adrenal glands are unremarkable. There is a 4.3 cm right renal cyst. There is no evidence of nephrolithiasis or obstructive uropathy. There is diverticular disease without evidence of diverticulitis. The aorta is nonaneurysmal. The bowel gas pattern is nonspecific. There is no free air. There is no ascites. There are no focal inflammatory changes. Bladder is normal. There is no pelvic mass, adenopathy or free fluid. IMPRESSION: A 4.3 cm right renal cyst No evidence of nephrolithiasis or obstructive uropathy. Diverticular disease without evidence of diverticulitis Dictated by: Dictated on workstation # [id number]
[2021-07-10] MEDS ORDERED: fentaNYL INJ 100 MCG/2 ML AMP IVP ONE (19:15)
== END 2021-07-10 19:38 | disposition home or self-care (01) ==
LOC: EDUNIT# 17:26 → ER 17:29
DX: R10.32 Left lower quadrant pain (principal); Z86.16 Personal history of COVID-19
CPT/HCPCS: 36415; 74176; 80053; 81000; 85025; 87088

== ENCOUNTER 2021-11-15 18:06 | Emergency (ER) | payer MEDICARE ==
[~2021-11-15] VITALS: Ht 165.1 cm; Wt 62.0 kg
--- NOTE | 2021-11-15 18:20 | ED General ---
General Stated Complaint: L SIDED WEAKNESS History of Present Illness Date Seen by Provider: Nov 15, 2021 Time Seen by Provider: 18:15 Initial Comments 66-year-old female presents with concerns with a left-sided weakness. Patient reports that this morning she was out weed eating. As she came in she had weakness to her left side especially her left arm. She reports that it was around 10 AM but by 11 she was back to normal. Patient also complains of just generalized weakness and malaise. Patient went to urgent care where she was diagnosed with a urinary tract infection but they were concerned about a TIA so they sent her to the ER. Patient has no weakness or focal deficit present upon arrival to the ER. Patient complains of some generalized malaise but she does have a known urinary tract infection with what sounds like symptoms that been there for a week. Patient was prescribed an antibiotic at urgent care. She denies any fever, chills or other systemic complaints. Allergies and Home Medications Allergies Coded Allergies: No Known Drug Allergies (Unverified , 04/11/20) Patient Home Medication List Home Medication List Reviewed: Yes Nitrofurantoin Macrocrystal (Nitrofurantoin) 100 Mg Capsule, 100 MG PO BID Prescribed by: ROBERT SALAS on 12/03/202050 Ondansetron (Ondansetron Odt) 4 Mg Tab.rapdis, 4 MG PO TID Prescribed by: EJAN SWAN on 04/11/20 1343 Review of Systems Review of Systems Constitutional: No chills, No fever; malaise, weakness EENTM: no symptoms reported Respiratory: No cough, No short of breath Cardiovascular: No edema, No palpitations, No syncope Gastrointestinal: No abdominal pain, No nausea, No vomiting Genitourinary: see HPI Musculoskeletal: see HPI Skin: no symptoms reported Psychiatric/Neurological: See HPI Past Jbcbcil-Evrseg-Vfnrch Hx Seasonal Allergies Seasonal Allergies: No Past Medical History Surgeries: Yes (colon resection) Respiratory: Yes COPD Cardiac: No Neurological: No Genitourinary: No Gastrointestinal: Yes Diverticulosis Musculoskeletal: No Endocrine: No HEENT: No Cancer: No Psychosocial: No Integumentary: No Physical Exam Vital Signs Capillary Refill : Height, Weight, BMI Height: '" Weight: lbs. oz. 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 Norm as Tested, Other (Generalized but equal weakness with no acute findings) Skin: Normal Color, Warm/Dry Progress/Results/Core Measures Suspected Sepsis SIRS Temperature: Pulse: Respiratory Rate: Laboratory Tests 11/15/21 18:35: White Blood Count 8.7 Blood Pressure / Mean: Laboratory Tests 11/15/21 18:35: Creatinine 1.18, Platelet Count 239, Total Bilirubin 0.2 Results/Orders Lab Results Laboratory Tests Test 11/15/21 18:35 Range/Units White Blood Count 8.7 4.3-11.0 10^3/uL Red Blood Count 4.39 3.80-5.11 10^6/uL Hemoglobin 12.6 11.5-16.0 g/dL Hematocrit 38 35-52 % Mean Corpuscular Volume 87 80-99 fL Mean Corpuscular Hemoglobin 29 25-34 pg Mean Corpuscular Hemoglobin Concent 33 32-36 g/dL Red Cell Distribution Width 12.2 10.0-14.5 % Platelet Count 239 130-400 10^3/uL Mean Platelet Volume 10.1 9.0-12.2 fL Immature Granulocyte % (Auto) 0 % Neutrophils (%) (Auto) 56 42-75 % Lymphocytes (%) (Auto) 32 12-44 % Monocytes (%) (Auto) 8 0-12 % Eosinophils (%) (Auto) 2 0-10 % Basophils (%) (Auto) 1 0-10 % Neutrophils # (Auto) 4.9 1.8-7.8 10^3/uL Lymphocytes # (Auto) 2.8 1.0-4.0 10^3/uL Monocytes # (Auto) 0.7 0.0-1.0 10^3/uL Eosinophils # (Auto) 0.2 0.0-0.3 10^3/uL Basophils # (Auto) 0.1 0.0-0.1 10^3/uL Immature Granulocyte # (Auto) 0.0 0.0-0.1 10^3/uL Sodium Level 141 135-145 MMOL/L Potassium Level 3.9 3.6-5.0 MMOL/L Chloride Level 105 98-107 MMOL/L Carbon Dioxide Level 27 21-32 MMOL/L Anion Gap 9 5-14 MMOL/L Blood Urea Nitrogen 16 7-18 MG/DL Creatinine 1.18 0.60-1.30 MG/DL Estimat Glomerular Filtration Rate 50 BUN/Creatinine Ratio 14 Glucose Level 98 70-105 MG/DL Calcium Level 9.2 8.5-10.1 MG/DL Corrected Calcium 9.3 8.5-10.1 MG/DL Magnesium Level 1.8 1.6-2.4 MG/DL Total Bilirubin 0.2 0.1-1.0 MG/DL Aspartate Amino Transf (AST/SGOT) 18 5-34 U/L Alanine Aminotransferase (ALT/SGPT) 16 0-55 U/L Alkaline Phosphatase 84 40-136 U/L Total Protein 6.5 6.4-8.2 GM/DL Albumin 3.9 3.2-4.5 GM/DL My Orders Orders - ROBERT ASLAS DO Cbc With Automated Diff (11/15/21 18:22) Comprehensive Metabolic Panel (11/15/21 18:22) Magnesium (11/15/21 18:22) Ct Head Wo (11/15/21 18:22) Vital Signs/I&O Capillary Refill : Departure Impression Primary Impression: Acute cystitis Qualified Codes: N30.00 - Acute cystitis without hematuria Additional Impression: Left arm weakness Disposition: 01 HOME, SELF-CARE Condition: Stable Departure-Patient Inst. Referrals: PETE ROMAN MD (PCP/Family) Primary Care Physician Patient Instructions: Urinary Tract Infection, Adult (DC), Weakness ED, Transient Ischemic Attack (DC) Add. Discharge Instructions: Follow-up with your primary care provider for further outpatient evaluation and discussion of potential MRI for further evaluation. Be sure to fill your already prescribed prescription for your urinary tract infection and take as directed ROBERT SALAS DO Nov 15, 2021 18:20
--- NOTE | 2021-11-15 18:38 | Diagnostic Imaging Report ---
PROCEDURE: CT head without contrast. TECHNIQUE: Multiple contiguous axial images were obtained through the brain without the use of intravenous contrast. Auto Exposure Controls were utilized during the CT exam to meet ALARA standards for radiation dose reduction. INDICATION: Weakness, generalized weakness. COMPARISON: None FINDINGS: The ventricles and cortical sulci are mildly prominent, likely from generalized parenchymal volume loss. There is no midline shift or mass effect. No acute intracranial hemorrhage is seen. There are scattered areas of hypoattenuation in the white matter which are likely from chronic microvascular disease. There is no CT evidence of acute territorial ischemia. The calvarium appears intact. The visualized paranasal sinuses are clear. IMPRESSION: 1. No acute intracranial hemorrhage or CT evidence of acute territorial ischemia. 2. Findings of chronic microvascular disease. Dictated by: Dictated on workstation # [id number]
[2021-11-15 18:43] LABS: BASOPHILS # (AUTO) 0.1 10^3/uL (0.0-0.1); BASOPHILS % (AUTO) 1 % (0-10); EOSINOPHILS # (AUTO) 0.2 10^3/uL (0.0-0.3); EOSINOPHILS % (AUTO) 2 % (0-10); HEMATOCRIT 38 % (35-52); HEMOGLOBIN 12.6 g/dL (11.5-16.0); LYMPHOCYTES # (AUTO) 2.8 10^3/uL (1.0-4.0); LYMPHOCYTES % (AUTO) 32 % (12-44); MEAN CORPUSCULAR HEMOGLOBIN 29 pg (25-34); MEAN CORPUSCULAR HGB CONC 33 g/dL (32-36); MEAN CORPUSCULAR VOLUME 87 fL (80-99); MEAN PLATELET VOLUME 10.1 fL (9.0-12.2); MONOCYTES # (AUTO) 0.7 10^3/uL (0.0-1.0); MONOCYTES % (AUTO) 8 % (0-12); NEUTROPHILS # (AUTO) 4.9 10^3/uL (1.8-7.8); NEUTROPHILS % (AUTO) 56 % (42-75); PLATELET COUNT 239 10^3/uL (130-400); WHITE BLOOD COUNT 8.7 10^3/uL (4.3-11.0)
[2021-11-15 19:01] LABS: CREATININE SERUM 1.18 MG/DL (0.60-1.30); POTASSIUM 3.9 MMOL/L (3.6-5.0)
[2021-11-15 19:02] LABS: ALBUMIN 3.9 GM/DL (3.2-4.5); BILIRUBIN,TOTAL 0.2 MG/DL (0.1-1.0); CALCIUM 9.2 MG/DL (8.5-10.1); MAGNESIUM 1.8 MG/DL (1.6-2.4); TOTAL PROTEIN 6.5 GM/DL (6.4-8.2)
[2021-11-15 19:13] VITALS: BP 160/85
== END 2021-11-15 19:15 | disposition home or self-care (01) ==
LOC: EDUNIT# 18:06 → ER FS 18:08
DX: N30.00 Acute cystitis without hematuria (principal); R53.1 Weakness
CPT/HCPCS: 36415; 70450; 80053; 83735; 85025